=== PATIENT | male | born 1945 | race Asian ===

== ENCOUNTER 2017-04-17 12:38 | Emergency (ER) | payer OTHER ==
--- NOTE | 2017-04-17 13:07 | EDPHY ---
H & P Stated Complaint: Cough, fever, chills Time Seen by Provider: 04/17/17 12:43 HPI/ROS: 72-year-old male presents complaining of sore throat, right earache, cough, fevers and chills for several days. He was seen by his primary care physician on Friday (3 days ago). At that time he was given Cheratussin, Tessalon Perles. Re-presented today because he has had worsened cough as well as fevers and chills Review of systems As per HPI General positive fever positive chills no weakness HEENT no eye pain no eye discharge. No eye redness, positive sore throat, positive right ear pain Respiratory positive cough, no shortness of breath Cardiac no chest pain, no peripheral edema GI no abdominal pain, no diarrhea, no constipation, no nausea, no vomiting no flank pain, no hematuria, no dysuria Musculoskeletal no myalgias, no joint pain Heme no easy bruising, no easy bleeding Endo no polyuria, no polydipsia Skin no rashes, no pruritus Neuro no syncope, no dizziness, no headaches Psych is no suicidal ideation, no homicidal ideation Source: Patient Exam Limitations: No limitations - Personal History Current Tetanus Diphtheria and Acellular Pertussis (TDAP): Yes - Medical/Surgical History Hx Asthma: No Hx Chronic Respiratory Disease: No Hx Diabetes: No Hx Cardiac Disease: No Hx Renal Disease: No Hx Cirrhosis: No Hx Alcoholism: No Hx HIV/AIDS: No Hx Splenectomy or Spleen Trauma: No Other PMH: knee, elbow pain. gout - Family History Significant Family History: No pertinent family hx - Social History Smoking Status: Never smoked Alcohol Use: None Drug Use: None - Physical Exam Exam: 72-year-old male Alert and oriented nontoxic appearance, no acute distress , temperature 37.7 Atraumatic normocephalic Extraocular muscles intact, anicteric Nares mild yellowish discharge Right TM with erythema, no discharge Oropharynx mild erythema no tonsillar swelling no exudate no uvular deviation, tolerating own secretions Neck supple no lymphadenopathy Lungs clear to auscultation bilaterally Heart regular rate and rhythm Abdomen normoactive bowel sounds soft nontender Extremities no cyanosis clubbing or edema Skin no rash Constitutional: Initial Vital Signs Temperature (C) 37.7 C 04/17/17 13:00 Heart Rate 91 04/17/17 13:00 Respiratory Rate 18 04/17/17 13:00 Blood Pressure 149/94 H 04/17/17 13:00 O2 Sat (%) 96 04/17/17 13:00 O2 Delivery Mode Room Air Allergies/Adverse Reactions: No Known Allergies Allergy (Verified 03/21/16 20:40) Home Medications: Medication Instructions Recorded Amoxicillin/Clavulanate Pot 875 mg PO BID #20 tab 04/17/17 [Augmentin 875 MG TAB (*)] Codeine Sulf [Codeine 30 mg (*)] 30 mg PO HS PRN #10 tab 04/17/17 Indomethacin 04/17/17 Medical Decision Making - Diagnostics Imaging Results: Imaging Impressions Chest X-Ray 04/17/17 13:32 Impression: 1. Airways disease without pneumonia. 2. Plump brenda: pulmonary artery hypertension versus adenopathy. Recommend repeat PA and lateral chest when the patient's airways disease has been successfully treated vs proceeding to chest CT angiography. ED Course/Re-evaluation: Patient seen and evaluated for fever chills cough of several days duration Influenza negative Rapid strep negative Respiratory panel positive for rhino virus CBC within normal limits CMP within normal limits Blood cultures sent Chest x-ray positive for airway disease, no consolidation Impression Bronchitis Right otitis media Plan Augmentin 875 twice daily times 10 days Codeine at bedtime for cough Follow up with primary care physician Differential Diagnosis: Bronchitis, pneumonia, influenza, strep pharyngitis, otitis media - Data Points Laboratory Results: Laboratory Results 04/17/17 13:45 04/17/17 13:45 04/17/17 04/17/17 04/17/17 Unknown 13:48 13:45 WBC RBC Hgb Hct MCV MCH MCHC RDW Plt Count MPV Neut % (Auto) Lymph % (Auto) Norman % (Auto) Eos % (Auto) Baso % (Auto) Nucleat RBC Rel Count Absolute Neuts (auto) Absolute Lymphs (auto) Absolute Monos (auto) Absolute Eos (auto) Absolute Basos (auto) Absolute Nucleated RBC Immature Gran % Immature Gran # Sodium 143 mEq/L mEq/L (134-144) Potassium 4.0 mEq/L mEq/L (3.5-5.2) Chloride 103 mEq/L mEq/L (97-110) Carbon Dioxide 24 mEq/l mEq/l (22-31) Anion Gap 16 mEq/L mEq/L (8-16) BUN 9 mg/dL mg/dL (7-23) Creatinine 1.2 mg/dL mg/dL (0.7-1.3) Estimated GFR 60 Glucose 157 mg/dL H mg/dL (70-100) Calcium 8.7 mg/dL mg/dL (8.5-10.4) Total Bilirubin 0.4 mg/dL mg/dL (0.1-1.4) AST 40 IU/L IU/L (17-59) ALT 57 IU/L IU/L (21-72) Alkaline Phosphatase 92 IU/L IU/L (38-126) Total Protein 6.8 g/dL g/dL (6.3-8.2) Albumin 3.7 g/dL g/dL (3.5-5.0) Influenza A,B Rapid Group A Strep Screen NEGATIVE (NEGATIVE) Group A Strep DNA Pending 04/17/17 04/17/17 13:45 12:55 WBC 8.46 10^3/uL 10^3/uL (3.80-9.50) RBC 4.56 10^6/uL 10^6/uL (4.40-6.38) Hgb 13.6 g/dL L g/dL (13.7-17.5) Hct 39.9 % L % (40.0-51.0) MCV 87.5 fL fL (81.5-99.8) MCH 29.8 pg pg (27.9-34.1) MCHC 34.1 g/dL g/dL (32.4-36.7) RDW 12.2 % % (11.5-15.2) Plt Count 245 10^3/uL 10^3/uL (150-400) MPV 10.2 fL fL (8.7-11.7) Neut % (Auto) 81.7 % H % (39.3-74.2) Lymph % (Auto) 6.5 % L % (15.0-45.0) Norman % (Auto) 6.9 % % (4.5-13.0) Eos % (Auto) 4.1 % % (0.6-7.6) Baso % (Auto) 0.4 % % (0.3-1.7) Nucleat RBC Rel Count 0.0 % % (0.0-0.2) Absolute Neuts (auto) 6.92 10^3/uL H 10^3/uL (1.70-6.50) Absolute Lymphs (auto) 0.55 10^3/uL L 10^3/uL (1.00-3.00) Absolute Monos (auto) 0.58 10^3/uL 10^3/uL (0.30-0.80) Absolute Eos (auto) 0.35 10^3/uL 10^3/uL (0.03-0.40) Absolute Basos (auto) 0.03 10^3/uL 10^3/uL (0.02-0.10) Absolute Nucleated RBC 0.00 10^3/uL 10^3/uL (0-0.01) Immature Gran % 0.4 % % (0.0-1.1) Immature Gran # 0.03 10^3/uL 10^3/uL (0.00-0.10) Sodium Potassium Chloride Carbon Dioxide Anion Gap BUN Creatinine Estimated GFR Glucose Calcium Total Bilirubin AST ALT Alkaline Phosphatase Total Protein Albumin Influenza A,B Rapid NEGATIVE FOR FLU (NEGATIVE) Group A Strep Screen Group A Strep DNA Microbiology Results: MICROBIOLOGY 04/17/17 12:55 Nasal, Sinus - Swab Respiratory Panel (PCR) - Final Human Rhinovirus/Enterovirus Medications Given: Discontinued Medications Acetaminophen/Codeine Phosphate (Tylenol #3) 1 tab PO EDNOW ONE Stop: 04/17/17 15:07 Last Admin: 04/17/17 15:14 Dose: 1 tab Amoxicillin/Clavulanate Potassium (Augmentin 875mg) 875 mg PO EDNOW ONE PRN Reason: Protocol Stop: 04/17/17 14:58 Last Admin: 04/17/17 15:14 Dose: 875 mg Sodium Chloride (Ns) 1,000 mls @ 0 mls/hr IV ONCE ONE PRN Reason: Wide Open Stop: 04/17/17 13:32 Last Admin: 04/17/17 13:51 Dose: 1,000 mls Departure - Departure Disposition: Home, Routine, Self-Care Clinical Impression: Bronchitis, Right otitis media Condition: Good Instructions: Acetaminophen/Codeine (By mouth), Otitis Media (ED), Acute Bronchitis (ED) Referrals: MITZY MCGEE [Primary Care Provider] - As per Instructions Prescriptions: Amoxicillin/Clavulanate Pot [Augmentin 875 MG TAB (*)] 875 mg PO BID #20 tab Codeine Sulf [Codeine 30 mg (*)] 30 mg PO HS PRN #10 tab PRN Reason: Cough, Severe
[2017-04-17] MEDS ORDERED: NS 1,000 ML IV ONE (13:31)
[2017-04-17 13:38] VITALS: RESP 18; TEMP 99.9
[2017-04-17 13:56] LABS: % IMMATURE GRANULYOCYTES 0.4 % (0.0-1.1); ABSOLUTE IMMATURE GRANULOCYTES 0.03 10^3/uL (0.00-0.10); ADD DIFF? NO; ADD MORPH? NO; ADD SCAN? NO; ATYPICAL LYMPHOCYTE FLAG 30 (0-99); FRAGMENT RBC FLAG 0 (0-99); HEMATOCRIT 39.9 % (40.0-51.0); HEMOGLOBIN 13.6 g/dL (13.7-17.5); LEFT SHIFT FLG 0 (0-99); LIPEMIA HEMOLYSIS FLAG 90 (0-99); MEAN CELL HEMOGLOBIN 29.8 pg (27.9-34.1); MEAN CELL HEMOGLOBIN CONCENTR. 34.1 g/dL (32.4-36.7); MEAN CELL VOLUME 87.5 fL (81.5-99.8); MEAN PLATELET VOLUME 10.2 fL (8.7-11.7); PLATELET CLUMPS FLAG 10 (0-99); PLATELET COUNT 245 10^3/uL (150-400); RED BLOOD CELL COUNT 4.56 10^6/uL (4.40-6.38); RED CELL DISTRIBUTION WIDTH 12.2 % (11.5-15.2)
[2017-04-17 14:12] LABS: ALBUMIN 3.7 g/dL (3.5-5.0); BILIRUBIN,TOTAL 0.4 mg/dL (0.1-1.4); CALCIUM 8.7 mg/dL (8.5-10.4); CREATININE 1.2 mg/dL (0.7-1.3); TOTAL PROTEIN 6.8 g/dL (6.3-8.2)
[2017-04-17] MEDS ORDERED: AMOXICILLIN/CLAVULANATE POT 875/125 MG TAB PO ONE (14:57)
[2017-04-17] MEDS ORDERED: ACETAMINOPHEN/CODEINE 300/30MG TAB PO ONE (15:06)
[2017-04-17 15:10] VITALS: O2SAT 97
[2017-04-17 15:23] VITALS: BP 125/84; PULSE 79
== END 2017-04-17 15:20 | disposition home or self-care (01) ==
LOC: CED 12:38
DX: J20.9 Acute bronchitis, unspecified (principal); H66.91 Otitis media, unspecified, right ear
CPT/HCPCS: 71020-PO; 80053-PO; 85025-PO; 87400-PO; 87880-PO

== ENCOUNTER → 2017-09-05 | Outpatient (CLI) | payer OTHER ==
[~2017-09-05] MED LIST: GADOBUTROL 10 ML VIAL IVP ONE
== END ==
LOC: FIMAGING 11:01
PROVIDERS: ATTEND Ophthalmology
DX: R93.0 Abnormal findings on diagnostic imaging of skull and head, not elsewhere classified (principal); J34.1 Cyst and mucocele of nose and nasal sinus; H53.2 Diplopia
CPT/HCPCS: 70543; A9585